=== PATIENT | female | born 1975 | race American Indian/Alaskan Native ===

== ENCOUNTER 2018-05-28 20:56 | Emergency (ER) | payer OTHER ==
[2018-05-28 20:57] VITALS: BMI 27.1
[2018-05-28 21:07] VITALS: BP 124/80; PULSE 82; RESP 16; TEMP 98.1; O2SAT 98
--- NOTE | 2018-05-28 21:20 | C.PDOC ---
History Of Present Illness 43 year old female presents to the ED for evaluation of right shoulder, bilateral knees and left foot pain s/p falling. Patient reports that earlier today she fell on an escalator injuring her right shoulder, both knees and left foot. Patient denies LOC, headache, head injury, visual changes, nausea, vomit, dizziness, weakness, numbness. Time Seen by Provider: 05/28/18 21:11 Chief Complaint (Nursing): Upper Extremity Problem/Injury History Per: Patient History/Exam Limitations: no limitations Onset/Duration Of Symptoms: Hrs Current Symptoms Are (Timing): Still Present Quality: "Pain" Exacerbating Factor(s): Movement Recent travel outside of the [place]: No Additional History Per: Patient Past Medical History Reviewed: Historical Data, Nursing Documentation, Vital Signs Vital Signs: Last Vital Signs Temp 98.1 F 05/28/18 21:05 Pulse 82 05/28/18 21:05 Resp 16 05/28/18 21:05 BP 124/80 05/28/18 21:05 Pulse Ox 98 05/28/18 21:05 - Medical History PMH: Anemia Denies: Chronic Kidney Disease Surgical History: No Surg Hx Family History: States: Unknown Family Hx - Social History Hx Alcohol Use: No Hx Substance Use: No - Immunization History Hx Tetanus Toxoid Vaccination: No Hx Influenza Vaccination: No Hx Pneumococcal Vaccination: No Review Of Systems Constitutional: Negative for: Fever, Chills Cardiovascular: Negative for: Chest Pain Respiratory: Negative for: Shortness of Breath Gastrointestinal: Negative for: Nausea, Vomiting Musculoskeletal: Positive for: Shoulder Pain, Arm Pain, Leg Pain Skin: Negative for: Rash Neurological: Negative for: Weakness, Numbness Physical Exam - Physical Exam Appears: Non-toxic, No Acute Distress Skin: Normal Color, Warm, Dry Head: Atraumatic, Normacephalic Eye(s): bilateral: Normal Inspection Neck: Normal ROM, Supple Chest: Symmetrical Cardiovascular: Rhythm Regular Respiratory: Normal Breath Sounds, No Rales, No Rhonchi, No Wheezing Gastrointestinal/Abdominal: Soft, No Tenderness, No Guarding, No Rebound Extremity: Normal ROM (with pain to right shoulder), Tenderness (right shoulder, bilateral knees, left foot dorsal aspect), Capillary Refill (< 2 seconds), No Swelling, Other (superficial excoriation to left foot dorsal aspect) Pulses: Left Radial: Normal, Right Radial: Normal, Left Dorsalis Pedis: Normal, Right Dorsalis Pedis: Normal Neurological/Psych: Oriented x3, Normal Speech Gait: Other (minimal limp) ED Course And Treatment O2 Sat by Pulse Oximetry: 98 (ON RA) Pulse Ox Interpretation: Normal - Other Rad Right shoulder X-Ray X-Ray: Interpreted by Me, Viewed By Me Interpretation: No fracture or dislocation Bilateral knees X-Ray X-Ray: Interpreted by Me, Viewed By Me Interpretation: No fracture or dislocation Left foot X-Ray X-Ray: Interpreted by Me, Viewed By Me Interpretation: No fracture or dislocation Progress Note: Plan: - Tylenol 650 mg PO. - Right shoulder X-Ray. - Bilateral Knee X-Ray. - Left foot X-Ray. On reassessment, patient is resting comfortably, and is in no acute distress. Patient was instructed to follow up with physician/clinic in 1-2 days for further evaluation. Pt is fully ambulatory at discharge Disposition Counseled Patient/Family Regarding: Diagnosis, Need For Followup, Rx Given - Disposition Referrals: Korin Spivey MD [Medical Doctor] - Disposition: HOME/ ROUTINE Disposition Time: 22:58 Condition: STABLE Additional Instructions: Take medications as directed Follow up with PMD Apply ICE pack to affected areas Return to ER if worse Prescriptions: Ibuprofen [Motrin] 600 mg PO Q6H #24 tab Instructions: Contusion (DC), Shoulder Pain (DC) Forms: [facility] (D[place]ib[place]ian), Work Excuse - Clinical Impression Clinical Impression: Knee contusion, Strain of shoulder, right, Contusion of foot, left - PA / OPTICAL LAB TECHNICIAN / Resident Statement MD/DO has reviewed & agrees with the documentation as recorded. - Scribe Statement The provider has reviewed the documentation as recorded by the Scribe Quentin Henry All medical record entries made by the Scribe were at my direction and personally dictated by me. I have reviewed the chart and agree that the record accurately reflects my personal performance of the history, physical exam, medical decision making, and the department course for this patient. I have also personally directed, reviewed, and agree with the discharge instructions and disposition.
--- NOTE | 2018-05-29 09:19 | RAD ---
Date of service: 05/28/2018 PROCEDURE: Left Foot Radiographs. HISTORY: r/o fx COMPARISON: None. FINDINGS: BONES: Bone alignment and mineralization are normal. There is no acute displaced fracture or bone destruction. JOINTS: Normal. SOFT TISSUES: Normal. OTHER FINDINGS: None. IMPRESSION: No acute fracture or dislocation.
--- NOTE | 2018-05-29 09:31 | RAD ---
Date of service: 05/28/2018 PROCEDURE: Radiographs of the Right Shoulder HISTORY: r/o fx COMPARISON: No prior. FINDINGS: BONES: Bone alignment and mineralization are normal. There is no acute displaced fracture or bone destruction. JOINTS: There is mild degenerative osteoarthrosis in the acromioclavicular joint. The glenohumeral joint is normal. SOFT TISSUES: Normal. OTHER FINDINGS: None. IMPRESSION: No acute fracture or dislocation.
--- NOTE | 2018-05-29 09:42 | RAD ---
Date of service: 05/28/2018 PROCEDURE: Bilateral Knee Radiographs. HISTORY: r/o fx COMPARISON: None. FINDINGS: BONES: Bone alignment and mineralization are normal. There is no acute displaced fracture or bone destruction. JOINTS: There is mild tricompartmental degenerative osteoarthrosis with reduced joint spaces, marginal osteophytes and tibial spiking, worse in the media compartment. SOFT TISSUES: Right Knee: Normal. Left Knee: Normal. JOINT EFFUSION: There are bilateral small suprapatellar joint effusions. OTHER FINDINGS: None. IMPRESSION: No acute fracture or dislocation.
== END 2018-05-28 23:07 | disposition home or self-care (01) ==
LOC: C.ER 20:56
DX: S90.32XA Contusion of left foot, initial encounter (principal); S46.911A Strain of unspecified muscle, fascia and tendon at shoulder and upper arm level, right arm, initial encounter; S80.01XA Contusion of right knee, initial encounter; S80.02XA Contusion of left knee, initial encounter; W10.0XXA Fall (on)(from) escalator, initial encounter